=== PATIENT | female | born 2005 | race Two or more races ===

== ENCOUNTER 2024-01-29 12:21 | Emergency (ER) | payer MEDICAID ==
[~2024-01-29] VITALS: Ht 160 cm; Wt 54.3 kg
[2024-01-29] MEDS ORDERED: PANT40TA2 PO (13:09)
[2024-01-29 13:13] LABS: Urine Bacteria FEW /hpf (None Seen); Urine Blood TRACE /uL (Negative); Urine Clarity Hazy (Clear); Urine Color Light-Yellow (Yellow); Urine Mucus FEW (None Seen); Urine Protein, UAD TRACE (Negative); Urine Urobilinogen Normal (Negative); Urine WBC 10 /hpf (0 - 5); Urine pH 6.5 (5.0-9.0)
[2024-01-29 13:28] LABS: Basophils # (auto) 0 10 ^3/uL (0-0.2); Basophils % (auto) 0.3 % (0.0-2.0); Eosinophils # (auto) 0 10 ^3/uL (0-0.8); Eosinophils % (auto) 0.3 % (0.0-7.0); Hematocrit 49.5 % (36.0-46.0); Hemoglobin 16.8 g/dL (12.2-16.2); Lymphocytes # (auto) 1.8 10 ^3/uL (0.4-5.4); Lymphocytes % (auto) 19.1 % (10.0-50.0); Mean Corpuscular Hemoglobin 28.8 pg (28.0-32.0); Mean Corpuscular Hgb Conc. 33.9 g/dL (32.0-36.0); Mean Corpuscular Volume 84.9 fL (80.0-100.0); Monocytes # (auto) 0.8 10 ^3/uL (0-1.3); Monocytes % (auto) 8.5 % (0.0-12.0); Neutrophils # (auto) 6.7 10 ^3/uL (1.6-8.6); Neutrophils % (auto) 71.8 % (37.0-80.0); Nucleated Red Blood Cells % 0.1 %; Red Blood Cells 5.83 10^6/uL (4.0-5.20); Red Cell Distribution Width 13.9 % (11.8-14.3); White Blood Cell 9.3 10^3/uL (4.4-10.8)
[2024-01-29 13:45] LABS: Chloride 98 mmol/L (98-107); Potassium 3.2 mmol/L (3.5-5.1); Sodium 135 mmol/L (136-145)
[2024-01-29 13:46] LABS: Anion Gap 11 (5-15); Carbon Dioxide 26 mmol/L (20-30)
[2024-01-29 13:47] LABS: Calcium 10.4 mg/dL (8.5-10.1)
[2024-01-29 13:52] LABS: BUN/Creatinine Ratio 26.3 (10.0-20.0); Blood Urea Nitrogen 20 mg/dL (9-23); Glucose 114 mg/dL (74-106)
[2024-01-29] MEDS ORDERED: NITR-87 PO (14:41)
[2024-01-29 14:45] VITALS: BP 125/83; PULSE 114; RESP 16; TEMP 98.2; O2SAT 100
== END 2024-01-29 14:54 | disposition home or self-care (01) ==
LOC: ER 12:28
DX: K29.70 Gastritis, unspecified, without bleeding (principal); N39.0 Urinary tract infection, site not specified
CPT/HCPCS: 36415; 80048; 81001; 85025